=== PATIENT | male | born 1975 | race Caucasian/White ===

== ENCOUNTER → 2017-04-21 | Outpatient (CLI) | payer BC ==
--- NOTE | 2017-04-21 15:32 | PCVCIMAG ---
APPROVED REPORT Study performed: 04/21/2017 14:19:24 EXAM: Comprehensive 2D, Doppler, and color-flow Echocardiogram Patient Location: Echo lab Status: routine BSA: 2.53 HR: 76 bpmBP: 122/78 mmHg Rhythm: NSR Other Information Study Quality: Adequate Risk Factors: Cardiac Risk Factors: HTN, Hyperlipidemia Indications Chest Pain Obesity 2D Dimensions LVEF(%): 46.53 (>50%) IVSd: 9.65 (7-11mm) LVDd: 46.48 mm PWd: 7.98 (7-11mm) LVDs: 35.69 (25-40mm) Left Atrium: 43.74 (27-40mm) Aortic Root: 30.88 mm LV Single Plane 4CH: 59.04 % LV Single Plane 2CH: 59.59 %[place]'s LVEF: 59.31 % Biplane EF: 59.3 % Volumes Left Atrial Volume (Systole) Single Plane 4CH: 56.59 mLSingle Plane 2CH: 89.23 mL LA ESV Index: 29.00 mL/m2 Aortic Valve AoV Peak Cornell.: 1.64 m/s AO Peak Gr.: 10.69 mmHgLVOT Max P.70 mmHg LVOT Max V: 1.39 m/s Mitral Valve E/A Ratio: 1.5 MV Decel. Time: 182.55 ms MV E Max Cornell.: 0.78 m/s MV A Cornell.: 0.53 m/s IVRT: 83.04 ms Pulmonary Valve PV Peak Cornell.: 1.22 m/sPV Peak Gr.: 5.93 mmHg Pulmonary Vein P Vein S: 0.37 m/sP Vein A: 0.30 m/s P Vein D: 0.51 m/sP Vein A Dur.: 107.3 msec P Vein S/D Ratio: 0.73 Tricuspid Valve TR Peak Cornell.: 2.19 m/s TR Peak Gr.: 19.21 mmHg Left Ventricle The left ventricle is normal size. There is normal LV segmental wall motion. There is normal left ventricular wall thickness. Left ventricular systolic function is normal. The left ventricular ejection fraction is within the normal range. LVEF is 55-60%. The left ventricular diastolic function is normal. Right Ventricle The right ventricle is normal size. The right ventricular systolic function is normal. Atria The left atrium size is normal. The right atrium size is normal. Aortic Valve The aortic valve is normal in structure. No aortic regurgitation is present. There is no aortic valvular stenosis. Mitral Valve The mitral valve is normal in structure. Trace mitral regurgitation. No evidence of mitral valve stenosis. Tricuspid Valve The tricuspid valve is normal in structure. Mild tricuspid regurgitation with PAP of 26 mmHg. Pulmonic Valve The pulmonary valve is normal in structure. There is no pulmonic valvular regurgitation. Great Vessels The aortic root is normal in size. IVC is normal in size and collapses with >50% inspiration Pericardium There is no pericardial effusion. <Conclusion> The left ventricle is normal size. Left ventricular systolic function is normal. The right ventricle is normal size. The left atrium size is normal. The aortic valve is normal in structure. Trace mitral regurgitation. Mild tricuspid regurgitation with PAP of 26 mmHg.
--- NOTE | 2017-04-21 15:44 | PCVCIMAG ---
APPROVED REPORT Exam: Stress Echocardiogram Indication: Chest pain , Hyperlipidemia, Hypertension, obesity Patient Location: Echo lab Stress Nurse: Nitza Holguin RN Status: routine Ht: 6 ft 1 in HR: 84 bpm BP: 122/78 mmHg Rhythm: NSR Procedure The patient underwent an Exercise Stress Test using the Tommie Protocol. Blood pressure, heart rate, and EKG were monitored. An Echocardiogram was performed by it desktop support technician in four stages in quad fashion. At peak stress, four selected images were obtained and placed side by side with resting images for comparison. Stress Test Details Stress Test: Exercise stress testing was performed using a Tommie protocol. HR Resting HR: 84 bpmMax Heart Rate (APMHR): 179 bpm Max HR Achieved: 166 bpmTarget HR (85% APMHR): 152 bpm % of APMHR: 92 Recovery HR: 103 bpm HR response to stress: Normal HR response to stress BP Resting BP: 122/78 mmHg Max BP: 168/68 mmHg Recovery BP: 136/68 mmHg ECG Resting ECG: Sinus Rhythm Stress ECG: Sinus Rhythm ST Change: Non-ischemic Arrhythmia: None Recovery ECG: Sinus Rhythm Recovery Arrhythmia: None Clinical Reason for Termination: Maximal effort Stress Symptoms: Dyspnea Exercise duration: 9 min 25 sec Highest Stage Achieved: Stage 4: 4.2 mph at 16% grade. Exercise capacity: 11.4 METs Overall Exercise Capacity for Age: Normal Pre-Stress Echo The resting Echocardiogram showed normal left ventricular contractility with an estimated Ejection Fraction of about >55%. Normal wall motion in all segments on baseline images. Post-Stress Echo The stress Echocardiogram showed normal left ventricular contractility with an estimated Ejection Fraction of about 65%. Normal augmentation of wall motion in all segments on post stress images. Clinical No clinical or ECG evidence for ischemia. Conclusion Clinical Response: Non-ischemic Exercise Capacity: Average Stress ECG Response: Non-ischemic Stress Echo Images: Non-ischemic No clinical, EKG or echocardiographic evidence for ischemia. Other Information Study Quality: Good <Conclusion> No clinical, EKG or echocardiographic evidence for ischemia.
== END | disposition home or self-care (01) ==
LOC: PCVCIMAG 14:04
PROVIDERS: ATTEND Internal Medicine Cardiovascular Disease
DX: I08.1 Rheumatic disorders of both mitral and tricuspid valves (principal); I10 Essential (primary) hypertension; E78.00 Pure hypercholesterolemia, unspecified; E66.9 Obesity, unspecified; J45.909 Unspecified asthma, uncomplicated; K21.9 Gastro-esophageal reflux disease without esophagitis; Z79.899 Other long term (current) drug therapy; Z87.891 Personal history of nicotine dependence
CPT/HCPCS: 93306; 93351; G0463

== ENCOUNTER 2021-02-23 17:09 | Emergency (ER) | payer OTHER ==
[~2021-02-23] VITALS: Ht 188 cm; Wt 120.0 kg
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
[2021-02-23] MEDS: fentaNYL PF VIAL 100 MCG/2 ML VIAL IV PRN ×3 (17:42→18:56)
--- NOTE | 2021-02-23 17:48 | EKG ---
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
[2021-02-23 17:57] LABS: BASO # 0.1 x10^3/uL (0.0-0.2); BASO % 0 % (0-3); EOS # 0.1 x10^3/uL (0.0-0.7); EOS % 0 % (0-3); HEMATOCRIT 42.6 % (39.0-53.0); HEMOGLOBIN 14.8 g/dL (13.0-17.5); LYMPH # 2.4 x10^3/uL (1.0-4.8); LYMPH % 13 % (24-48); MEAN CORPUSCULAR HEMOGLOBIN 30 pg (25-35); MEAN CORPUSCULAR HGB CONC 35 g/dL (31-37); MEAN CORPUSCULAR VOLUME 88 fL (79-100); MONO # 0.9 x10^3/uL (0.0-1.1); MONO % 5 % (0-9); NEUT # 15.2 x10^3/uL (1.8-7.7); NEUT % 82 % (31-73); PLATELET COUNT 337 x10^3/uL (140-400); RED BLOOD COUNT 4.85 x10^6/uL (4.30-5.70); RED CELL DISTRIBUTION WIDTH 13.8 % (11.5-14.5); WHITE BLOOD COUNT 18.6 x10^3/uL (4.0-11.0)
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
[2021-02-23 18:09] LABS: CALCIUM 9.6 mg/dL (8.5-10.1); GFR 80.8; POTASSIUM 3.2 mmol/L (3.5-5.1)
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
[2021-02-23 18:23] LABS: % BANDS 4 % (0-9); % BASOS 1 % (0-3); % LYMPHS 15 % (24-48); % MONOS 4 % (0-10); % SEGS 76 % (35-66); PLT ESTIMATE ADEQUATE (ADEQUATE)
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
[2021-02-23 19:38] VITALS: BP 132/68
[2021-02-23] MEDS ORDERED: DIPH,PERTUSS(ACELL),TET VAC/PF 0.5 ML SYRINGE. VAX IM ONE (19:45)
[2021-02-23] MEDS ORDERED: BACITRACIN TOPICAL OINT PACKET. TP ONE (19:45)
[2021-02-23] MEDS ORDERED: HYDROmorphone 2 MG/ML VIAL IVP ONE (19:45)
[2021-02-23] MEDS ORDERED: CEPH500T PO ×3 (20:29→21:28)
[2021-02-23] MEDS ORDERED: HYDR-2761 PO ×3 (20:29→21:28)
[2021-02-23] MEDS ORDERED: CYCL10TA2 PO ×2 (21:01→21:28)
[2021-02-23] MEDS ORDERED: POTASSIUM CHLORIDE 20 MEQ TABLET.ER. PO ONE (21:30)
== END 2021-02-23 20:59 | disposition home or self-care (01) ==
LOC: ER 17:09
DX: S22.42XA Multiple fractures of ribs, left side, initial encounter for closed fracture (principal); S70.12XA Contusion of left thigh, initial encounter; S50.12XA Contusion of left forearm, initial encounter; K21.9 Gastro-esophageal reflux disease without esophagitis; M48.061 Spinal stenosis, lumbar region without neurogenic claudication; R51.9 Headache, unspecified; V49.49XA Driver injured in collision with other motor vehicles in traffic accident, initial encounter; Y93.89 Activity, other specified; Y92.488 Other paved roadways as the place of occurrence of the external cause; Y99.8 Other external cause status
CPT/HCPCS: 36415; 70450; 71045; 71260; 72125; 73090; 73552; 74177; 80048; 85007; 85025; 90471; 90715; 93005; 96374; 96375; 96376; 99285; G0238; G0480; J1170; J3010; 99284-25